=== PATIENT | female | born 1990 | race Hispanic/Latino ===

== ENCOUNTER 2016-04-22 18:39 | Emergency (ER) | payer MEDICAID, SELFPAY ==
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
== END 2016-04-22 18:55 | disposition home or self-care (01) ==
LOC: EDBD 18:39 → BURERS 18:39
DX: R55 Syncope and collapse (principal)

== ENCOUNTER 2016-04-29 16:08 | Emergency (ER) | payer MEDICAID ==
--- NOTE | 2016-04-29 16:34 | ERRECORD ---
[facility] EMERGENCY RECORD HPI URI (16:23 [facility]) CHIEF COMPLAINT: Patient presents for evaluation of nasal congestion, Patient presents for evaluation of cough. HISTORIAN: History provided by patient, 25F presents with 2 days of cough, congestion, and fever at home. Reports that she is two ex-preemie twins with adjusted age of 4 weeks. Denies abdominal pain, recent travel. reports generalized bodyaches and malaise. LOCATION: Symptoms are generalized. TIME COURSE: Gradual onset of symptoms, There has been no change in the patient's symptoms over time. ASSOCIATED WITH: Associated with chills, Associated with fever. RELIEVED BY: Patient's condition relieved by over the counter medications, tylenol. ROS (16:24 [facility]) CONSTITUTIONAL: Historian reports chills, reports fever, reports malaise. EYES: Negative eye review of systems, Historian denies eye pain, denies vision changes. ENT: congestion, sore throat. CARDIOVASCULAR: Negative cardiovascular review of systems, Historian denies chest pain, denies palpitations. RESPIRATORY: Historian reports cough. GI: Negative gastrointestinal review of systems, Historian denies abdominal pain, denies constipation, denies diarrhea, denies nausea, denies vomiting. GENITOURINARY FEMALE: Negative genitourinary review of systems, Historian denies dysuria, denies frequency. MUSCULOSKELETAL: Negative musculoskeletal review of systems, Historian denies back pain, denies fall, denies injury. SKIN: Negative skin review of systems, Historian denies rash, denies skin changes. NEUROLOGIC: Negative neurologic review of systems, Historian denies headache, denies mental status changes, denies paralysis, denies paresthesias, denies sensory changes. HEMO/LYMPHATIC: Normal hematologic/lymphatic system review, Historian denies abnormal blood clotting. ALLERGIC/IMMUNOLOGIC: Normal allergy/immunologic system review, Historian denies frequent infections. PAST MEDICAL HISTORY (16:16 [facility]) MEDICAL HISTORY: No past medical history. FEMALE SURGICAL HISTORY: Patient has no surgical history. PSYCHIATRIC HISTORY: Psychiatric history includes, depression. SOCIAL HISTORY: Patient denies alcohol use, Patient denies drug use, Patient has no smoking history. &a-1R&a+25V*p+0X*q5031Y*c202B*c15G*c2P*p-0X&a-25V&a+1R Name: Perez Mayo : 1990 F25 MedRec: [id number] AcctNum: [id number] Prepared: Rashmi Apr 29, 2016 16:32 by Interface Page 1 of 3 pMD [facility] EMERGENCY RECORD KNOWN ALLERGIES [place] CURRENT MEDICATIONS (16:15 ED [facility]) Zoloft: TABLET : Strength - 25 mg : ORAL Patient Dose: unk mg Oral once a day. VITAL SIGNS VITAL SIGNS: BP: 119/92, Pulse: 111, Resp: 20, Temp: 99.1 (Oral), O2 sat: 97 on Room Air, Time: 04/29/2016 16:13. (16:13 ED [facility]) Pulse: 102, O2 sat: 98 on Room Air, Time: 04/29/2016 16:16. (16:16 [facility]) PHYSICAL EXAM (16:24 [facility]) CONSTITUTIONAL: Vital signs reviewed, Patient afebrile, Pulse, tachycardic, Blood pressure normal, Respiratory rate normal, Patient appears non toxic, Patient appears pain free, Patient alert and oriented to person, place and time. HEAD: Head exam normal, Head exam included findings of head atraumatic, normocephalic. EYES: Eye exam normal, Eye exam included findings of eyelids normal to inspection, Pupils equally round and reactive to light, Extraocular muscles intact, no nystagmus. ENT: ENT exam normal, Ear exam normal, external ear normal, tympanic membranes normal, no bleeding, Pharynx exam normal, Uvula exam normal, Tonsil exam normal, Mouth exam normal, mucous membranes moist, teeth normal. NECK: Neck exam normal, Neck exam included findings of normal range of motion, Trachea midline, no meningeal signs, no cervical adenopathy, no tenderness. RESPIRATORY CHEST: Respiratory and chest exam normal, Respiratory exam included findings of no respiratory distress, Breath sounds clear. CARDIOVASCULAR: Cardiovascular assessment normal, Cardiovascular exam included findings of heart rate regular rate and rhythm, Heart sounds normal. ABDOMEN FEMALE: Abdominal exam included findings of abdomen nontender, Bowel sounds normal, no distension, no mass, no pulsatile masses, no peritoneal signs, no rigidity, no guarding, no rebound, Rovsing's sign absent. BACK: Back exam normal, Back exam included findings of normal inspection, range of motion normal, no tenderness. UPPER EXTREMITY: Upper extremity exam normal, Upper extremity exam included findings of inspection normal, Range of motion normal, Motor strength normal, Sensation intact, Radial pulse normal. LOWER EXTREMITY: Lower extremity exam normal, Lower extremity exam included findings of inspection normal, Range of motion normal, Motor strength normal, Sensation intact, Posterior tibial pulse normal, Pedal pulse normal. NEURO: Neuro exam normal, Neuro exam findings include patient &a-1R&a+25V*p+0X*b3510F*c202B*c15G*c2P*p-0X&a-25V&a+1R Name: Perez Mayo : 1990 F25 MedRec: [id number] AcctNum: [id number] Prepared: Rashmi Apr 29, 2016 16:32 by Interface Page 2 of 3 pMD [facility] EMERGENCY RECORD oriented to person, place and time, Speech normal, Gait normal, Cranial nerves intact, no focal motor deficits, no focal sensory deficits. SKIN: Skin exam normal, Skin exam included findings of skin warm, dry, and normal in color, no rash. PSYCHIATRIC: Psychiatric exam normal, Normal affect. DOCTOR NOTES (16:25 [facility]) TEXT: Patient presented with signs and symptoms consistent with viral syndrome. well appearing, non-toxic patient without evidence of concerning bacterial illness such as meningitis or pneumonia that would require further workup or investigation. Tolerating oral intake without difficulty. Appropriate for outpatient management with oral fluids and antipyretics. Needs follow up with primary physician in the next 2-3 days for re-evaluation. PATIENT STATUS: Patient has improved since arrival to emergency department. PATIENT PLAN: The patient will be discharged, The patient will follow up with primary care physician. PROBLEM LIST No recorded problems DIAGNOSIS (16:22 [facility]) FINAL: PRIMARY: Viral infection. PRESCRIPTION No recorded prescriptions DISPOSITION PATIENT: Disposition Type: Discharge, Disposition: *Discharge Home. (16:22 [facility]) Patient left the department. (16:28 [facility]) Pena: WILFRED=MOISES Frazier, Rusty [facility]=MD Flavia, Matt &a-1R&a+25V*p+0X*[id number]*c202B*c15G*c2P*p-0X&a-25V&a+1R Name: Perez Mayo : 1990 F25 MedRec: [id number] AcctNum: [id number] Prepared: Rashmi Apr 29, 2016 16:32 by Interface Page 3 of 3 pMD MTDD
--- NOTE | 2016-04-29 16:36 | PICIS ---
[facility] EMERGENCY RECORD TRIAGE ([place] Apr 29, 2016 16:14 [facility]) TRIAGE NOTES: cough, sore thraot, fever, and bodyaches since saturday. (Morrow Apr 29, 2016 16:14 [facility]) PATIENT: NAME: Perez Mayo, AGE: 25, GENDER: female, : [place] 1990, TIME OF GREET: [place] Apr 29, 2016 16:08, PREFERRED LANGUAGE: Salvadorean, ETHNICITY: or , ECODE BILLING MAP: [facility], SSN: [id number], Zip Code: [address], KG WEIGHT: 90.72, PHONE: , , , PERSON ID: [id number], PAYMENT: [place] [employer], PCP: none. (Morrow Apr 29, 2016 16:14 IG) COMPLAINT: flu like symptoms. (Morrow Apr 29, 2016 16:14 IG) ADMISSION: URGENCY: 4 Non Urgent, ADMISSION SOURCE: Home, TRANSPORT: Walk-in, BED: ER -04. (Morrow Apr 29, 2016 16:14 IG) IMMUNIZATIONS: Flu vaccine up to date, Tetanus immunization up to date, Pneumococcal vaccine not up to date. (16:16 [facility]) SIRS SCORING: Heart Rate 55-109 (0), Temp range 96.8-101.1 (0), respiratory rate 12-24 (0), Mental Status altered: no (0), Total SIRS Score 0, Infection or Suspected Infection: No. (16:16 [facility]) TRIAGE SCREENING: Patient denies suicidal ideation, Patient denies presence of domestic violence. (16:16 [facility]) PROVIDERS: TRIAGE NURSE: Rusty Frazier RN. ([place] Apr 29, 2016 16:14 [facility]) VITAL SIGNS: BP 119/92, Pulse 111, Resp 20, Temp 99.1, (Oral), O2 Sat 97, on Room Air, Time 04/29/2016 16:13. (16:13 IG) PREVIOUS VISIT ALLERGIES: [place]. (Morrow Apr 29, 2016 16:14 IG) [place]. (16:16 [facility]) KNOWN ALLERGIES [place] CURRENT MEDICATIONS (16:15 IG) Zoloft: TABLET : Strength - 25 mg : ORAL Patient Dose: unk mg Oral once a day. VITAL SIGNS VITAL SIGNS: BP: 119/92, Pulse: 111, Resp: 20, Temp: 99.1 (Oral), O2 sat: 97 on Room Air, Time: 04/29/2016 16:13. (16:13 [facility]) Pulse: 102, O2 sat: 98 on Room Air, Time: 04/29/2016 16:16. (16:16 [facility]) NURSING ASSESSMENT: ENT (16:14 [facility]) CONSTITUTIONAL: Complex assessment performed, Patient arrives ambulatory, Gait steady, History obtained from patient, Patient appears, uncomfortable, Patient cooperative, Patient alert, Oriented to person, place and time, Skin warm, Skin dry, Skin normal in color, Mucous membranes pink, Mucous membranes moist, Patient is well-groomed, Patient complains of flu like symptoms, cough, sore thraot, fever, and bodyaches since saturday. ENT: Ear assessment findings include ear normal to inspection, Nasal assessment findings include nose normal to inspection, Sinuses &a-1R&a+25V*p+0X*q5224K*c202B*c15G*c2P*p-0X&a-25V&a+1R Name: Perez Mayo : 1990 F25 MedRec: [id number] AcctNum: [id number] Prepared: Rashmi Apr 29, 2016 16:32 by Interface Page 1 of 5 pMD [facility] EMERGENCY RECORD normal, Nasal mucosa normal, Congestion, bilaterally, Mouth and throat assessment findings include mouth inspection normal, Uvula normal, Tonsils normal, Mucous membranes pink, and moist, Able to swallow, Speech normal, Notes: some redness in the back of the throat. RESPIRATORY/CHEST: Breath sounds clear, Respiratory assessment findings include respiratory effort easy, Respirations regular, Conversing normally, Neck and chest exam findings include trachea midline, Chest expansion equal, Chest movement symmetrical, no signs of distress, Associated with cough, dry. SAFETY: Side rails up, Cart/Stretcher in lowest position, Call light within reach, Hospital ID band on. NURSING PROCEDURE: DISCHARGE NOTE (16:27 [facility]) DISCHARGE: Patient discharged to home, ambulating without assistance, driving self, unaccompanied, Summary of Care printed/ provided, Transition record given to patient, Simple or moderate discharge teaching performed, by MOISES Ojeda, Patient treated and evaluated by physician. BELONGINGS: Belongings and valuables with patient at time of discharge include:, Belongings remain with patient, Valuables remain with patient. SAFETY: Side rails up, Cart/Stretcher in lowest position, Call light within reach, Hospital ID band on. HPI URI (16:23 [facility]) CHIEF COMPLAINT: Patient presents for evaluation of nasal congestion, Patient presents for evaluation of cough. HISTORIAN: History provided by patient, 25F presents with 2 days of cough, congestion, and fever at home. Reports that she is two ex-preemie twins with adjusted age of 4 weeks. Denies abdominal pain, recent travel. reports generalized bodyaches and malaise. LOCATION: Symptoms are generalized. TIME COURSE: Gradual onset of symptoms, There has been no change in the patient's symptoms over time. ASSOCIATED WITH: Associated with chills, Associated with fever. RELIEVED BY: Patient's condition relieved by over the counter medications, tylenol. ROS (16:24 [facility]) CONSTITUTIONAL: Historian reports chills, reports fever, reports malaise. EYES: Negative eye review of systems, Historian denies eye pain, denies vision changes. ENT: congestion, sore throat. CARDIOVASCULAR: Negative cardiovascular review of systems, Historian denies chest pain, denies palpitations. RESPIRATORY: Historian reports cough. GI: Negative gastrointestinal review of systems, Historian denies &a-1R&a+25V*p+0X*h3349S*c202B*c15G*c2P*p-0X&a-25V&a+1R Name: Perez Mayo : 1990 F25 MedRec: [id number] AcctNum: [id number] Prepared: Rashmi Apr 29, 2016 16:32 by Interface Page 2 of 5 pMD [facility] EMERGENCY RECORD abdominal pain, denies constipation, denies diarrhea, denies nausea, denies vomiting. GENITOURINARY FEMALE: Negative genitourinary review of systems, Historian denies dysuria, denies frequency. MUSCULOSKELETAL: Negative musculoskeletal review of systems, Historian denies back pain, denies fall, denies injury. SKIN: Negative skin review of systems, Historian denies rash, denies skin changes. NEUROLOGIC: Negative neurologic review of systems, Historian denies headache, denies mental status changes, denies paralysis, denies paresthesias, denies sensory changes. HEMO/LYMPHATIC: Normal hematologic/lymphatic system review, Historian denies abnormal blood clotting. ALLERGIC/IMMUNOLOGIC: Normal allergy/immunologic system review, Historian denies frequent infections. PAST MEDICAL HISTORY (16:16 [facility]) MEDICAL HISTORY: No past medical history. FEMALE SURGICAL HISTORY: Patient has no surgical history. PSYCHIATRIC HISTORY: Psychiatric history includes, depression. SOCIAL HISTORY: Patient denies alcohol use, Patient denies drug use, Patient has no smoking history. PHYSICAL EXAM (16:24 [facility]) CONSTITUTIONAL: Vital signs reviewed, Patient afebrile, Pulse, tachycardic, Blood pressure normal, Respiratory rate normal, Patient appears non toxic, Patient appears pain free, Patient alert and oriented to person, place and time. HEAD: Head exam normal, Head exam included findings of head atraumatic, normocephalic. EYES: Eye exam normal, Eye exam included findings of eyelids normal to inspection, Pupils equally round and reactive to light, Extraocular muscles intact, no nystagmus. ENT: ENT exam normal, Ear exam normal, external ear normal, tympanic membranes normal, no bleeding, Pharynx exam normal, Uvula exam normal, Tonsil exam normal, Mouth exam normal, mucous membranes moist, teeth normal. NECK: Neck exam normal, Neck exam included findings of normal range of motion, Trachea midline, no meningeal signs, no cervical adenopathy, no tenderness. RESPIRATORY CHEST: Respiratory and chest exam normal, Respiratory exam included findings of no respiratory distress, Breath sounds clear. CARDIOVASCULAR: Cardiovascular assessment normal, Cardiovascular exam included findings of heart rate regular rate and rhythm, Heart sounds normal. ABDOMEN FEMALE: Abdominal exam included findings of abdomen nontender, Bowel sounds normal, no distension, no mass, no pulsatile &a-1R&a+25V*p+0X*g5311Q*c202B*c15G*c2P*p-0X&a-25V&a+1R Name: Perez Mayo : 1990 F25 MedRec: [id number] AcctNum: [id number] Prepared: Rashmi Apr 29, 2016 16:32 by Interface Page 3 of 5 pMD [facility] EMERGENCY RECORD masses, no peritoneal signs, no rigidity, no guarding, no rebound, Rovsing's sign absent. BACK: Back exam normal, Back exam included findings of normal inspection, range of motion normal, no tenderness. UPPER EXTREMITY: Upper extremity exam normal, Upper extremity exam included findings of inspection normal, Range of motion normal, Motor strength normal, Sensation intact, Radial pulse normal. LOWER EXTREMITY: Lower extremity exam normal, Lower extremity exam included findings of inspection normal, Range of motion normal, Motor strength normal, Sensation intact, Posterior tibial pulse normal, Pedal pulse normal. NEURO: Neuro exam normal, Neuro exam findings include patient oriented to person, place and time, Speech normal, Gait normal, Cranial nerves intact, no focal motor deficits, no focal sensory deficits. SKIN: Skin exam normal, Skin exam included findings of skin warm, dry, and normal in color, no rash. PSYCHIATRIC: Psychiatric exam normal, Normal affect. EVENTS TRANSFER: Triage to Emergency Emergency Room -04. (Rashmi Apr 29, 2016 16:14 [facility]) Removed from Emergency Emergency Room -04. (16:28 [facility]) DOCTOR NOTES (16:25 [facility]) TEXT: Patient presented with signs and symptoms consistent with viral syndrome. well appearing, non-toxic patient without evidence of concerning bacterial illness such as meningitis or pneumonia that would require further workup or investigation. Tolerating oral intake without difficulty. Appropriate for outpatient management with oral fluids and antipyretics. Needs follow up with primary physician in the next 2-3 days for re-evaluation. PATIENT STATUS: Patient has improved since arrival to emergency department. PATIENT PLAN: The patient will be discharged, The patient will follow up with primary care physician. PROBLEM LIST No recorded problems DIAGNOSIS (16:22 [facility]) FINAL: PRIMARY: Viral infection. DISPOSITION PATIENT: Disposition Type: Discharge, Disposition: *Discharge Home. (16:22 [facility]) Patient left the department. (16:28 [facility]) INSTRUCTION (16:23 [facility]) DISCHARGE: URI, VIRAL, NO ABX (ADULT). &a-1R&a+25V*p+0X*x2410G*c202B*c15G*c2P*p-0X&a-25V&a+1R Name: Perez Mayo : 1990 F25 MedRec: [id number] AcctNum: [id number] Prepared: Rashmi Apr 29, 2016 16:32 by Interface Page 4 of 5 pMD [facility] EMERGENCY RECORD SPECIAL: Drink lots of water, Tylenol for fever. Good handwashing, monitor the twins closely. PRESCRIPTION No recorded prescriptions IMAGING (16:28 [facility]) *SUPPLY CHARGE SHEET: Image captured from scanner. *DISCHARGE INSTRUCTIONS RECEIPT: Image captured from scanner. ADMIN (16:26 [facility]) DIGITAL SIGNATURE: MD Alejandro Jason. Pena: [facility]=MOISES Frazier, Rusty [facility]=MD Alejandro Jason &a-1R&a+25V*p+0X*[id number]*c202B*c15G*c2P*p-0X&a-25V&a+1R Name: Perez Mayo : 1990 5 MedRec: [id number] AcctNum: [id number] Prepared: Rashmi Apr 29, 2016 16:32 by Interface Page 5 of 5 pMD MTDD
== END 2016-04-29 16:27 | disposition home or self-care (01) ==
LOC: BURERS 16:08
DX: B34.9 Viral infection, unspecified (principal); F32.9 Major depressive disorder, single episode, unspecified
CPT/HCPCS: 99283

== ENCOUNTER 2016-09-18 20:03 | Emergency (ER) | payer MEDICAID, OTHER ==
[2016-09-18] MEDS ORDERED: Lidocaine 1% w/Epinephrine 1:100K 30 ML VIAL ONE (20:13)
[2016-09-18] MEDS ORDERED: Bacitracin Zinc 1 Packet ONE (20:39)
[2016-09-18] MEDS ORDERED: Amoxicillin/Potassium Clav 875 MG TAB ONE ×2 (20:48→20:50)
== END 2016-09-18 20:53 | disposition home or self-care (01) ==
LOC: BURERS 20:03
DX: S81.811A Laceration without foreign body, right lower leg, initial encounter (principal); G43.909 Migraine, unspecified, not intractable, without status migrainosus; F31.9 Bipolar disorder, unspecified; W54.0XXA Bitten by dog, initial encounter
CPT/HCPCS: 12004; J2001

== ENCOUNTER 2016-09-28 11:14 | Emergency (ER) | payer OTHER | END 2016-09-28 11:43 | disposition home or self-care (01) | LOC: BURERS 11:14 | DX: S81.811D Laceration without foreign body, right lower leg, subsequent encounter (principal); G43.909 Migraine, unspecified, not intractable, without status migrainosus; F31.9 Bipolar disorder, unspecified; W54.0XXD Bitten by dog, subsequent encounter ==

== ENCOUNTER 2017-09-18 10:49 | Outpatient (CLI) | payer OTHER ==
--- NOTE | 2017-09-18 20:32 | ULT ---
ULTRASOUND SOFT TISSUES TRUNK (LOWER BACK) 09/18/17 A limited ultrasound of the left lower back over an area of palpable abnormality was performed. The u ltrasound fails to demonstrate a mass or any other abnormality, though the tech could clearly palpate the area of concern. Some lipomas will blend in with soft tissues and cannot be seen. Other modaliti es (CT, MRI) would be more definitive if needed. IMPRESSION: No pathology seen. POS: HOME
== END 2017-09-18 10:50 | disposition home or self-care (01) ==
LOC: BURULT 10:49
PROVIDERS: ATTEND Physician Assistant
DX: R22.9 Localized swelling, mass and lump, unspecified (principal)
CPT/HCPCS: 76999

== ENCOUNTER 2017-11-06 22:04 | Emergency (ER) | payer OTHER ==
[2017-11-06 22:28] LABS: Pregnancy Test - Urine (BHCG) Negative (Negative); Pregu Control Background? CLEAR/WHITE (CLR/WHITE); Pregu Control Bar Appear? YES (CONTROL BAR); Specific Gravity 1.006 (1.002-1.036)
[2017-11-06 22:30] LABS: Clarity Clear (Clear)
[2017-11-06 22:31] LABS: Bilirubin Negative (Negative); Blood, Urine Negative (Negative); Glucose, Urine (Dipstick) Negative (Negative); Leukocyte Negative (Negative); Nitrite Negative (Negative); Protein, Urine (Dipstick) Negative (Neg-Trace); Urobilinogen 0.2 mg/dL (0.2-1.0)
[2017-11-08 01:44] LABS: Chlamydia by PCR DETECTED (NotDetected); GC by PCR Not Detected (NotDetected)
== END 2017-11-06 23:17 | disposition home or self-care (01) ==
LOC: BURERS 22:04
DX: E28.2 Polycystic ovarian syndrome (principal); F31.9 Bipolar disorder, unspecified
CPT/HCPCS: 81003; 81025; 87480; 87491; 87510; 87591; 87660; 99284